=== PATIENT | female | born 1975 | race Caucasian/White ===

== ENCOUNTER 2017-02-06 11:53 | Emergency (ER) | payer OTHER ==
--- NOTE | ~2017-02-06 | CT2 ---
[facility] A Service of [facility] / [facility] RADIOLOGY TEXT RESULTS PATIENT: THERESE DAVID LOCATION: SED : 79 UNIT #: [id number] AGE: [address]: Mark Collado MD SEX: F ORDER DR: [id number] [address] [address] [id number] E MR#: [id number] Acc #: [id number] NAME: THERESE DAVID : 1975 SEX: F STUDY DATE/TIME: 02/06/2017 13:31 UNIT: SED ROOM: STUDY DESCRIPTION: CT Abd and Pelv W Cont Attending Physician: Mark Collado M.D. Ordering Physician: Mark Collado M.D. Primary Care Physician: Andreas Hernandez M.D. MEDICAL IMAGING REPORT This report is preliminary unless electronic signature is present. EXAM CT of abdomen and pelvis with contrast. INDICATIONS Vaginal bleeding, abdominal cramping since yesterday, since 1 a.m. COMPARISON 10/26/2015 TECHNIQUE The patient was given 100 mL of Isovue-370 and axial 5 mm images were obtained through the abdomen and pelvis. This CT exam was performed with one or more of the following radiation dose reduction techniques: automatic exposure control, adjustment of mA and/or kV according to patient size, and iterative reconstruction. FINDINGS Lung bases are clear. The liver, spleen, pancreas, adrenal glands and kidneys are normal in appearance. The aorta is normal in size. There is no adenopathy. The gallbladder has been removed. The bowel appears normal. The endometrial tissue is prominent but consistent with a normal phase of menstrual cycle. There seems to be a contraceptive ring in place around the cervix. The ovaries appear normal. IMPRESSION 1. The endometrial portion of the uterus shows low density material measuring about a centimeter in thickness throughout the endometrial cavity. This is consistent with a normal phase in the menstrual cycle. There is no mass visible. There may be a couple of tiny cervical cysts. 2. There appears to be some type of contraceptive ring present around the cervix. [facility] A Service of [facility] RADIOLOGY TEXT RESULTS PATIENT: THERESE DAVID LOCATION: [facility] [place] : [birth year] UNIT #: [id number] AGE: [address]: Mark Collado MD SEX: F ORDER DR: 3. The gallbladder has been removed. 4. Otherwise, the study is normal. Dictated by... Collins Marte M.D. THIS IS AN ELECTRONICALLY VERIFIED REPORT Collins Marte M.D. at 02/07/2017 9:42 AM DORINDA/mary TD: 02/06/2017 15:48 JOB #: [id number] MEDICAL IMAGING REPORT Page 1 of 1
[~2017-02-06 11:53] MED LIST: ALBUTEROL17 GM INH; CIPRO PO; CLARITIN10 M3 PO; NO MEDICATIONS; PRILOSEC PO; SINGULAIR PO; VOLTAREN75 MG PO; ZOFRAN PO
[2017-02-06] MEDS ORDERED: PRILOSEC PO (11:55)
[2017-02-06 12:57] LABS: URINE SOURCE CLEAN CATCH
[2017-02-06 13:01] LABS: BASOPHIL% 0.3 % (0-2.5); EOSINOPHIL# 0.2 X10e3 (0-0.7); EOSINOPHIL% 2.6 % (0.0-7.0); HEMATOCRIT 37.4 % (35.0-45.0); HEMOGLOBIN 12.3 gm/dL (12.0-16.0); LYMPHOCYTE# 1.8 X10e3 (1.0-3.5); LYMPHOCYTE% 28.2 % (17.0-45.0); MEAN CELL VOLUME 80.8 FL (83-96); MEAN CORPUSCULAR HEMOGLOBIN 26.6 PG (28-34); MEAN CORPUSCULAR HGB CONC 32.9 g/dL (30-36); MEAN PLATELET VOLUME 6.4 FL (6.5-11.5); MONOCYTE# 0.4 X10e3 (0-1.0); MONOCYTE% 5.9 % (3.0-12.0); PLATELET COUNT 371 X10e3 (140-420); RED BLOOD COUNT 4.63 X10e (3.90-5.30); RED CELL DISTRIBUTION WIDTH 14.9 % (11.0-15.5); WHITE BLOOD COUNT 6.4 X10e3 (4.0-10.5)
[2017-02-06 13:02] LABS: URINE APPEARANCE SL CLOUDY; URINE BILIRUBIN NEG (NEG); URINE BLOOD 3+ (NEG); URINE COLOR RED; URINE GLUCOSE NEG (NORM); URINE KETONE NEG (NEG); URINE LEUKOCYTE ESTERASE TRACE (NEG); URINE NITRATE NEG (NEG); URINE PROTEIN TRACE (NEG); URINE UROBILINOGEN 0.2 MG/DL (NORM)
[2017-02-06 13:10] LABS: DIFF IND NO
[2017-02-06 13:10] LABS: MICRO INDICATED? YES
[2017-02-06 13:11] LABS: URINE RBC INNUM /[HPF] (0-2)
[2017-02-06 13:17] LABS: CULTURE INDICATED? YES; URINE BACTERIA NEG (NEG); URINE SQUAMOUS EPITHELIAL CELL FEW /[HPF]; URINE TRANSITIONAL EPI CELLS OCCAS /[HPF]
[2017-02-06 13:21] LABS: ALBUMIN SERUM 4.2 g/dL (3.5-5.0); BILIRUBIN,TOTAL 0.1 mg/dL (0.2-2.0); BUN/CREATININE RATIO 11.25; CALCIUM SERUM 8.8 mg/dL (8.4-10.2); CREATININE SERUM 0.8 mg/dL (0.6-1.4); POTASSIUM 3.2 mmol/L (3.5-5.1); PROTEIN TOTAL SERUM 7.9 g/dL (6.0-8.3)
== END 2017-02-06 14:33 | disposition home or self-care (01) ==
LOC: SED 11:53
PROVIDERS: Emergency Medicine
DX: N93.9 Abnormal uterine and vaginal bleeding, unspecified (principal); F17.210 Nicotine dependence, cigarettes, uncomplicated; E87.6 Hypokalemia; Z79.899 Other long term (current) drug therapy
CPT/HCPCS: 36415; 74177; 80053; 81003; 84703; 85025; 87086; 99284; Q9967